=== PATIENT | male | born 1960 | race Caucasian/White ===

== ENCOUNTER 2017-07-12 12:19 | Outpatient (CLI) | payer OTHER ==
[~2017-07-12] VITALS: Ht 175.3 cm; Wt 90.7 kg
[~2017-07-12 12:19] MED LIST: ATOR10TA66 PO; CANA1TAB2 PO; CANA1TAB4 PO; LEVO75TA57 PO; LOSA100T28 PO; ONDN4T PO; OXYC-197 PO; PRD50T PO
[2017-07-12] MEDS ORDERED: LEVO75TA6 PO (13:27)
== END 2017-07-12 13:29 ==
LOC: PREOP 12:19
PROVIDERS: ATTEND Internal Medicine
DX: Z01.818 Encounter for other preprocedural examination (principal); Z12.11 Encounter for screening for malignant neoplasm of colon

== ENCOUNTER 2017-07-13 07:11 | Day surgery (SDC) | payer OTHER ==
--- NOTE | 2017-07-12 17:00 | HISTORY AND PHYSICAL ---
DATE OF SERVICE: COLONOSCOPY SUMMARY HISTORY OF PRESENT ILLNESS: The patient is a 57-year-old white male who presents for yearly wellness examination on 07/12. He is in need of screening colonoscopy. He plans on leaving for [place] where he will retire and plans on hiking and kayaking and doing a lot of traveling with his . They planned on doing his earlier; however, his became ill and he has been staying in a mobile home in [place] and cared for his up until her about a month ago. They have been working on getting all affairs in order and it has been stressful last 6 months. He attributes to a 16-pound weight gain over the past 6 months as he has not been able to exercise as he had been used to. He is looking forward to getting back to a healthier lifestyle in [place]. He reports that the stress related factors he has felt well. 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 PAST MEDICAL HISTORY: At one point, he was 62 pounds heavier than he currently is and at that time required antihypertensive and statin therapy for hypertension, hyperlipidemia. With significant lifestyle change, he has been able to get off of medication with normal blood pressure and lipid levels. He also had history of insulin resistance. He had blood test done yesterday, but levels were not back yet. PAST SURGICAL HISTORY: Significant for laparoscopic cholecystectomy in 2014 with no complications. SOCIAL HISTORY: He has a 24-cndi-akft smoking history, but quit in 2004. He reports social alcohol intake, now retired. He is . FAMILY HISTORY: Mother at the age of 80. Father at the age of 84. Mother had diabetes mellitus and coronary artery disease as well as hypertension and father of lung cancer at the age of 84 with a heavy smoking history. PHYSICAL EXAMINATION: GENERAL: Reveals a well-appearing white male, appears to be in no acute distress. VITAL SIGNS: Weight at 201.6 pounds is up 16 pounds from 6 months ago. Blood pressure 114/72. HEENT: He has a Mallampati class II oropharyngeal configuration with no evidence for pharyngeal erythema. Dentition is good. NECK: Revealed no JVD, adenopathy or bruits. CHEST: Clear. CARDIOVASCULAR: Revealed a regular rate and rhythm without murmur, S3 or S4. ABDOMEN: Soft, supple without mass, organomegaly or tenderness. EXTREMITIES: Reveal no cyanosis, clubbing or edema. Skin evaluation reveals no suspicious nevi. RECTAL: Deferred at the time of colonoscopy. ASSESSMENT: Essential normal well male examination, did discuss that his numbers probably would not look as good from a cholesterol and blood sugar standpoint and we will contact him when test results are available. His plan as stated above is to get back to a healthier lifestyle, increase physical activity. We did call out another 90 Synthroid 75 mcg tabs. Prep instructions with Suprep kit were given and questions were answered. He has been on a liquid diet today and was set up for colonoscopy in the morning of 07/13. Job ID: [id number] DocumentID: [id number] Dictated Date: 07/12/2017 16:17:53 Chemical Educator Date: 07/12/2017 16:59:56 Dictated By: MARY DRISCOLL MD MTDD
[~2017-07-13] VITALS: Ht 175.3 cm; Wt 90.7 kg
[~2017-07-13 07:11] MED LIST changes: +LEVO75TA6 PO
[2017-07-13] MEDS ORDERED: D5 LR IV SOLUTION 1,000 ML IV ONE (07:13)
--- OUTSIDE RECORDS SUMMARY | 2017-07-13 07:14 | XMS REPORT | Continuity of Care Document ---
Author Author [facility] Organization [facility] Address Unknown Phone Unavailable Allergies Active Description Code Type Severity Reaction Onset Reported/Identified Relationship to Patient Clinical Status Yes No Known Drug Allergies [id number] Drug Allergy Unknown N/A 12/27/2009 Medications There is no data. Problems Date Dx Coded Attending Type Code Diagnosis Diagnosed By 12/28/2011 Ot 717.9 12/28/2011 Ot 719.46 02/13/2015 CALERO DO, BETH Ot E03.9 02/13/2015 CALERO DO, BETH Ot E11.9 02/13/2015 CALERO DO, BETH Ot E78.0 02/13/2015 CALERO DO, BETH Ot F10.99 02/13/2015 CALERO DO, BETH Ot I10 02/13/2015 CALERO DO, BETH Ot K80.00 02/13/2015 CALERO DO, BETH Ot K85.9 02/14/2015 CALERO DO, BETH Ot E03.9 02/14/2015 CALERO DO, BETH Ot E11.9 02/14/2015 CALERO DO, BETH Ot E78.0 02/14/2015 CALERO DO, BETH Ot F10.99 02/14/2015 CALERO DO, BETH Ot I10 02/14/2015 CALERO DO, BETH Ot K80.00 02/14/2015 CALERO DO, BETH Ot K85.1 07/06/2017 MARY DRISCOLL E03.9 Hypothyroidism, unspecified 07/06/2017 MARY DRISCOLL E78.00 Pure hypercholesterolemia, unspecified 07/06/2017 MARY DRISCOLL E88.81 Metabolic syndrome 07/06/2017 MARY DRISCOLL P I10 Essential (primary) hypertension Procedures There is no data. Results Test Result Range CHEM 14 COMPREHENSIVE METABOLIC PANEL - 07/06/17 08:31 CHEM 14 COMPREHENSIVE METABOLIC PANEL LAB SODIUM 139 mmol/L 137 - 145 POTASSIUM 4.3 mmol/L 3.4 - 5.3 CHLORIDE 102 mmol/L 98 - 107 CO2 29.0 mmol/L 22.0 - 30.0 CALCIUM 9.2 mg/dl 8.4 - 10.3 GLUCOSE 105 mg/dl 65 - 110 ALBUMIN 4.0 g/dl 3.3 - 5.0 ALK PHOS 41 IU/L 32 - 91 ALT/SGPT 23 U/L 9 - 72 AST/SGOT 29 U/L 5 - 40 BUN 19 mg/dl 9 - 21 CREATININE 0.9 mg/dl 0.8 - 1.5 BUN/CREAT 20.43 RATIO T BILIRUBIN 0.60 mg/dl 0.20 - 1.30 TOTAL PROTEIN 7.00 g/dl 5.49 - 7.83 AGE 57 yrs GFR NonAA 92 GFR AA 111 LIPID PROFILE - 07/06/17 08:31 LIPID PROFILE LAB CHOLESTEROL 176 mg/dl 0 - 200 TRIGLYCERIDES 115 mg/dl 35 - 160 dHDL 42 mg/dl 35 - 100 LDL 111 mg/dl 1 - 130 VLDL 23 MG/DL 1 - 35 CHOL/HDL 4.2 RATIO 2.9 - 4.8 FastTSH - 07/06/17 08:31 TSH 1.78 uIU/ML 0.45 - 5.33 Encounters ACCT No. Visit Date/Time Discharge Status Pt. Type Provider Facility Loc./Unit Complaint [id number] 02/12/2015 19:05:00 02/14/2015 10:33:00 DIS Inpatient ABDIAS SHIELDS BETH [facility] 4TH [id number] 12/28/2011 07:58:00 Document Registration [id number] 07/06/2017 08:26:00 Document Registration [id number] 07/06/2017 08:26:00 07/06/2017 23:59:59 CLS Outpatient MARY DRISCOLL
--- OUTSIDE RECORDS SUMMARY | 2017-07-13 07:14 | XMS REPORT ---
Author PENG Gagnon Organization [employer] Address Unknown Phone Unavailable Care Team Providers Care Hydroelectric Production Manager Name Role Phone PENG LEE CP Unavailable Allergies, Adverse Reactions, Alerts Substance Reaction Event Type N.K.D.A. 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 Assessment Encounter for other general examination Z00.8 Active Medications Medication Code System Code Instructions Start Date End Date Status Dosage Levothyroxine Sodium [facility] [address]-58 75 MCG Orally Once a day 1 tablet Atorvastatin Calcium [facility] [address]-44 10 MG Orally Once a day 1 tablet Losartan Potassium [facility] [address]-62 100 MG Orally Once a day 1 tablet Invokamet [facility] [address]-86 50-1000 MG Orally Twice a day 1 tablet with meals Procedures Procedure Coding System Code Date Office Visit, New Pt., Level 4 CPT-4 33837 Feb 08, 2015 URINALYSIS, AUTO, W/O SCOPE CPT-4 57646 Feb 08, 2015 Vital Signs Date/Time: Feb 08, 2015 Temperature 97.7 F Weight 236.6 lbs Height 69.5 in BMI 34.44 Index Blood Pressure Diastolic 90 mmHg Blood Pressure Systolic 150 mmHg Cardiac Monitoring Heart Rate 80 bpm Results Name Result Date Reference Range Unit Abnormality Flag UA LONG DIP (IN HOUSE) Summary Purpose [employer] Submission
[2017-07-13] MEDS ORDERED: fentaNYL INJECTION 100 MCG/2 ML AMP ONE (07:23)
[2017-07-13] MEDS ORDERED: MIDAZOLAM 2 MG/2 ML (VERSED) VIAL ONE (07:23)
[2017-07-13] MEDS ORDERED: LIDOCAINE JELLY 2% (XYLOCAINE) 5 ML TUBE ONE (07:24)
--- NOTE | 2017-07-13 07:28 | Pre-Op Note & Conscious Sedat ---
Pre-Operative Progress Note H&P Reviewed The H&P was reviewed, patient examined and no changes noted. Date H&P Reviewed: Jul 13, 2017 Time H&P Reviewed: 07:28 Conscious Sedation Pre-Proced ASA Class: 2 Airway Mallampati Classification: ([place] appropriate class) I. II. III, IV Lungs Heart ASA score ASA 1: a normal healthy patient ASA 2: a patient with a mild systemic disease (mid diabetes, controlled hypertension, obesity ASA 3: a patient with a severe systemic disease that limits activity (angina , COPD, prior Myocardial infarction) ASA 4: a patient with an incapacitating disease that is a constant threat to life (CHF, renal failure) ASA 5: a moribund patient not expected to survive 24 hrs. (ruptured aneurysm) ASA 6: a declared brain patient whose organs are being harvested. For emergent operations, add the letter E after the classification Grade 2 Sedation Plan: Analgesia, Amnesia, Plan communicated to team members, Discussed options with patient/fam, Discussed risks with patient/fam Note The patient is an appropriate candidate to undergo the planned procedure, sedation, and anesthesia. The patient immediately re-assessed prior to indication. MARY DRISCOLL MD Jul 13, 2017 07:28
[2017-07-13] MEDS: fentaNYL INJECTION 100 MCG/2 ML AMP IV PRN ×2 (07:37→07:58)
[2017-07-13] MEDS ORDERED: D5 LR IV SOLUTION 1,000 ML IV SCH (07:45)
[2017-07-13] MEDS ORDERED: D5 LR IV SOLUTION 1,000 ML IV STA (07:45)
[2017-07-13] MEDS ORDERED: MIDAZOLAM 2 MG/2 ML (VERSED) VIAL IV ONE (07:45)
[2017-07-13] MEDS ORDERED: LIDOCAINE JELLY 2% (XYLOCAINE) 5 ML TUBE TOP PRN (07:45)
[2017-07-13] MEDS ORDERED: NALOXONE 0.4 MG/ML 1 ML (NARCAN) VIAL IV PRN (07:45)
[2017-07-13] MEDS ORDERED: MIDAZOLAM 2 MG/2 ML (VERSED) VIAL IVP PRN (07:45)
[2017-07-13] MEDS ORDERED: HURRICAINE EXT TUBE (BENZOCAINE) XX PRN (07:45)
[2017-07-13] MEDS ORDERED: FLUMAZENIL (ROMAZICON) 0.1 MG/ML 5 ML VIAL IV PRN (07:45)
[2017-07-13] MEDS ORDERED: LIDOCAINE JELLY 2% (XYLOCAINE) 5 ML TUBE MM PRN (07:45)
[2017-07-13] MEDS ORDERED: fentaNYL INJECTION 100 MCG/2 ML AMP IVP PRN (07:45)
[2017-07-13 07:49] VITALS: BP 121/77
[2017-07-13 07:57] VITALS: BP 121/77
[2017-07-13 08:20] VITALS: BP 116/71
[2017-07-13 08:50] VITALS: BP 127/88
[2017-07-13 09:00] VITALS: BP 127/88
--- NOTE | 2017-07-13 13:02 | OPERATIVE REPORT ---
DATE OF SERVICE: 07/13/2017 INDICATION FOR THE PROCEDURE: Screening colonoscopy done today. I am his primary care provider. The patient was placed in left lateral decubitus position. Prior to undergoing colonoscopy digital rectal evaluation was performed. Anal sphincter tone was normal and the perianal reflex was intact. The prostate was normal in size, anodular and nontender to digital inspection. No abnormalities, no additional inspection of the anal canal or distal rectal vault. The colonoscope was then inserted into the rectum under direct visualization and advanced to the cecum. The cecum was identified by identification of the ileocecal valve to cecal strap and appendiceal orifice. Photographic documentation was obtained. Careful inspection was made and the quality of the prep was good. FINDINGS: There were no evidence for internal or external hemorrhoids. The rectum and sigmoid colon were unremarkable. Present in the distal descending colon was a small 6 mm sessile adenomatous appearing polyp. It was photographed and biopsied and ablated with no significant blood loss. The remainder of the ascending colon was normal. The splenic flexure, transverse colon, hepatic flexure, ascending colon and cecum were normal. ASSESSMENT: One small 6 mm sessile polyp with adenomatous features was noted in the distal desending colon. It was biopsied, ablated and submitted for histopathology with no significant blood loss. This is otherwise normal colonoscopy to the cecum. We will await on histopathology report before advocating future surveillance colonoscopy interval. Job ID: [id number] DocumentID: [id number] Dictated Date: 07/13/2017 08:33:49 Mailroom Coordinator Date: 07/13/2017 13:01:43 Dictated By: MARY DRISCOLL MD MTDD
== END 2017-07-13 09:00 | disposition home or self-care (01) ==
LOC: ENDO 07:11
PROVIDERS: ATTEND Internal Medicine
DX: Z12.11 Encounter for screening for malignant neoplasm of colon (principal); D12.4 Benign neoplasm of descending colon; E06.3 Autoimmune thyroiditis; Z87.891 Personal history of nicotine dependence; Z79.899 Other long term (current) drug therapy
CPT/HCPCS: 88305